=== PATIENT | male | born 1945 | race Caucasian/White ===

== ENCOUNTER 2016-09-05 07:57 | Inpatient (IN) | payer MEDICARE ==
[2016-09-01 11:14] LABS: BASOPHILS 0.4 %; BASOPHILS ABSOLUTE 0.03 10/3/uL (0.0-0.16); EOSINOPHILS 1.8 %; EOSINOPHILS ABSOLUTE 0.14 10/3/uL (0.0-0.53); HEMATOCRIT 40.4 % (40.0-51.0); HEMOGLOBIN 14.2 g/dL (13.6-17.8); IMMATURE GRANULOCYTES 0.3 %; IMMATURE GRANULOCYTES ABSOLUTE 0.02 10/3/uL (0.0-0.11); LYMPHOCYTES 30.1 %; LYMPHOCYTES ABSOLUTE 2.31 10/3/uL (0.67-4.30); MANUAL DIFF NO %; MEAN CORPUS HGB CONC 35.1 g/dL (32.0-36.0); MEAN CORPUSCULAR HEMOGLOB 30.7 pg (26.0-34.0); MEAN CORPUSCULAR VOLUME 87.3 fL (80-100); MEAN PLATELET VOLUME 10.2 fL (9.2-13.0); MONOCYTES 8.9 %; MONOCYTES ABSOLUTE 0.68 10/3/uL (0.21-1.20); NEUTROPHILS 58.5 %; PLATELET COUNT 236 10/3/uL (150-400); RBC DISTRIBUTION WIDTH 12.8 % (12.0-16.0); RED CELL COUNT 4.63 10/6/uL (4.7-6.1); WHITE BLOOD CELLS 7.7 10/3/uL (4.5-10.5)
[2016-09-01 11:24] LABS: BUN (BLOOD UREA NITROGEN) 21 MG/DL (6-23); CALCIUM, SERUM 8.9 MG/DL (8.5-10.4); CHLORIDE, SERUM 105 MMOL/L (96-112); CO2 (CARBON DIOXIDE) 32 MMOL/L (24-34); CREATININE 1.27 MG/DL (0.70-1.30); GFR AFRICAN AMERICAN 65 ML/MIN (>=60); GFR NON AFRICAN AMERICAN 56 ML/MIN (>=60); GLUCOSE, SERUM 96 MG/DL (60-99); POTASSIUM, SERUM 3.4 MMOL/L (3.5-5.3); SODIUM, SERUM 143 MMOL/L (135-148)
--- NOTE | ~2016-09-05 | OP ---
Record Of Operation [facility] [address] [place]. [address] NAME: TATIANA PHELAN : 41 STATUS : ADM IN PAT#: [id number] AGE: 71 ADM/REG DATE : 09/05/16 MR#: [id number] REPORT SERV DATE: 09/05/16 DICTATED BY: RASHAAD FRYE DATE: 09/05/16 REPORT STATUS : Draft TRANSCRIBED BY: MODL DATE: 09/05/16 DATE OF PROCEDURE: 09/05/2016 PREOPERATIVE DIAGNOSIS: High-grade left carotid stenosis. POSTOPERATIVE DIAGNOSIS: High-grade left carotid stenosis. PROCEDURE: Left carotid endarterectomy. SURGEON: Rashaad Frye M.D. MID LEVEL CLINICIAN: Julianne. ANESTHESIA: General. COMPLICATIONS: None. BLOOD LOSS: 100 mL. HISTORY: The patient is a 71-year-old male with a high-grade left carotid stenosis. It was felt he would benefit from left carotid endarterectomy. This was discussed in detail with the patient and the family. They expressed understanding and desired to proceed. DESCRIPTION OF PROCEDURE: The patient was taken to the operating room and placed in the supine position. He was given general anesthesia without complication. Roll was placed under his shoulders and head was turned to the right. Incision was created on the anterior border of the sternocleidomastoid muscle taking care to be more than 1 fingerbreadth away from the angle of the mandible. Bovie cautery was used to dissect the subcutaneous tissues and platysma. Dissection performed to identify the sternocleidomastoid muscle. Dissection was continued on the anterior border of it. Continued dissection was performed to identify the internal jugular vein and the common facial vein. The common facial vein was freed circumferentially, ligated with 2-0 silk ties and divided. Additional vein branches were ligated with 3-0 silk ties and divided. The internal carotid artery was identified. This was freed circumferentially above the area of disease and isolated with a vessel loop. The external carotid artery was freed circumferentially and isolated with a vessel loop as well. The patient was given 7000 units of heparin intravenously. Dissection was performed proximally and the common carotid artery was freed circumferentially and isolated with a vessel loop. After more than 3 minutes of heparinization, the internal carotid artery was controlled with a vessel loop followed by the common carotid artery and external carotid artery. An 11 blade was used to create an arteriotomy on the common carotid artery. This was extended longitudinally onto the internal carotid artery beyond the area of disease. Endarterectomy was performed in a standard fashion with tethering in the proximal and distal end point and eversion endarterectomy on the external carotid artery. The endarterectomy site was copiously irrigated and all loose debris removed. Once this was felt to be adequate, the arteriotomy was closed using 8 x 80 bovine pericardial patch and running 6-0 Prolene suture. Prior to completion, the shunt was pulled from the lateral aspect. The Record Of Operation [facility] [address] [facility] [place]. [address] NAME: TATIANA PHELAN : 41 STATUS : ADM IN [facility]#: [id number] AGE: 71 ADM/REG DATE : 09/05/16 MR#: [id number] REPORT SERV DATE: 09/05/16 DICTATED BY: RASHAAD FRYE DATE: 09/05/16 REPORT STATUS : Draft TRANSCRIBED BY: MODL DATE: 09/05/16 endarterectomy site was copiously irrigated after the internal and external carotids were back bled and the common carotid artery was flushed. The closure was completed and flow restored to the external carotid artery, then after more than 5 heartbeats to the internal carotid artery. Bleeding points along the closure were controlled with additional 6-0 Prolene suture. Once hemostasis was assured, Fibrillar was placed over the closure and in the deep tissues. The deep tissues and platysma were closed with 2-0 Vicryl suture. Skin was closed with 4-0 Monocryl suture. Dermabond dressing applied. The patient tolerated the procedure well. He will be extubated in the operating room and if neurologically intact, taken to the recovery for continued care. ALBARO/DARBY Rashaad Frye M.D. / [id number] CC: Nico Ludwig M.D.
[~2016-09-05 07:57] MED LIST: ASAB PO; ATEN25 PO; CELEXA20 PO; LIPITOR20 PO
[2016-09-06] MEDS ORDERED: HYDROCHLOROT25 MG PO (08:38)
[2016-09-06] MEDS ORDERED: PCET PO (08:39)
== END 2016-09-06 10:03 | disposition home or self-care (01) | DRG 38 ==
LOC: SDC/OF 07:57 → CVICU 14:59
PROVIDERS: Surgery
PROC: 03CN0ZZ Extirpation of Matter from Left External Carotid Artery, Open Approach (ICD-10-PCS; principal; 2016-09-05 10:15)
DX: I65.22 Occlusion and stenosis of left carotid artery (principal); Z68.41 Body mass index [BMI] 40.0-44.9, adult; E66.9 Obesity, unspecified; G47.33 Obstructive sleep apnea (adult) (pediatric); Z88.0 Allergy status to penicillin; Z79.82 Long term (current) use of aspirin; Z79.899 Other long term (current) drug therapy; E78.00 Pure hypercholesterolemia, unspecified; Z90.49 Acquired absence of other specified parts of digestive tract; Z80.8 Family history of malignant neoplasm of other organs or systems
CPT/HCPCS: 80048; 85025; 87641; 88304; 88311; 93005; A9270-GY; C1725; J0690; J1170; J2370; J2405; J2710; J3010